=== PATIENT | female | born 1960 | race Caucasian/White ===

== ENCOUNTER 2019-12-18 20:49 | Emergency (ER) | payer OTHER, SELFPAY ==
[2019-12-18 20:51] VITALS: BP 138/84; PULSE 89; RESP 16; TEMP 36.8; O2SAT 99
[2019-12-18 21:14] VITALS: BP 147/83; PULSE 90; RESP 18; O2SAT 95
--- NOTE | 2019-12-18 21:18 | ED.WOUNDLAC ---
HPI - Wound/Laceration General Chief Complaint: Wound/Laceration Stated Complaint: finger lac Time Seen by Provider: 12/18/19 21:16 History of Present Illness HPI narrative: Pt is a 59 y/o female who presents to the ED with c/o a wound to her hand that occurred a few hours ago after cutting ice with a steak knife. Pt notes that she does not have an sales service professional at home and she wanted some crushed ice. Pt denies taking any pain medications. Pt's Tetanus is UTD. Pt denies any numbness and tingling. Onset (ago): hour(s) Location: other (hand) Place: home Patient tetanus UTD: Yes Context: accidental Associated symptoms: none Related Data Allergies Allergy/AdvReac Type Severity Reaction Status Date / Time No Known Allergies Allergy Unverified 11/28/17 03:29 Review of Systems Review of Systems: Narrative: SKIN: Reports wound to right hand. NEUROLOGIC: Denies numbness and tingling. All systems reviewed & are unremarkable except as noted in HPI and below PMFSH Past Medical History Medical History (Updated 12/18/19 @ 21:32 by Jordana De La Cruz) Anxiety Arthritis Depression Ganglion cyst of dorsum of right wrist Hyperlipidemia Hypothyroid Kidney stone Right clavicle fracture Toe fracture, right Surgical History Surgical History (Updated 12/18/19 @ 21:33 by Jordana De La Cruz) H/O arthroscopy of left knee H/O dilation and curettage History of hysterectomy Hx of section x2 Social History Social History (Updated 12/18/19 @ 21:32 by Jordana De La Cruz) Smoking packs per day: 1 Smoking cigarettes per day: 20.0 Smoking status: Current every day smoker Tobacco type: cigarettes Exam Narrative: Exam Narrative: GENERAL: Well-appearing, well-nourished, and in no acute distress. HEAD: Normocephalic, atraumatic. EYES: PERRLA and EOMI. ENT: Nares clear, no rhinorrhea or epistaxis. Mucous membranes moist. NECK: Supple. CHEST: No respiratory distress. HEART: Radial pulse 2+. EXTREMITIES: Normal range of motion. No edema. No deformity to right hand. SKIN: Warm, dry, no rash. 0.5 cm puncture wound to right interphalangeal crease between 1st and 2nd digit. Intact sensation, median, ulnar, radial nerve distribution. [employer] strength 5 out of 5. NEURO: No focal deficits. Alert and oriented X3. Course Vital Signs Vital signs: Vital Signs Temperature 36.8 C 12/18/19 20:51 Pulse Rate 89 12/18/19 20:51 Respiratory Rate 16 12/18/19 20:51 Blood Pressure 138/84 12/18/19 20:51 Pulse Oximetry 99 12/18/19 20:51 Temperature 36.8 C 12/18/19 20:51 Pulse Rate 90 12/18/19 21:14 Respiratory Rate 18 12/18/19 21:14 Blood Pressure 147/83 H 12/18/19 21:14 Pulse Oximetry 95 12/18/19 21:14 Procedures Laceration Laceration 1: Date: 12/18/19 Time: 21:27 Site: hand Size (cm): 0.5 Description: linear Depth: involves muscle layer Local Anesthetic: lidocaine 1% Amount of anesthesia used (mL): 3 Pre-repair: wound explored, irrigated and irrigated extensively ====== Skin Level ====== Skin layer closed with: prolene Size (cm): 5-0 Number of sutures: 1 Technique: simple, interrupted ====== Subcutaneous Layer ====== ====== Muscle Layer ====== ====== Tendon Layer ====== MDM - Wound/Laceration MDM Narrative Medical decision making narrative: Patient with puncture wound to interphalangeal space of right hand. There is some tendon visible. No evidence of tendon laceration. Patient neurovascularly intact, normal range of motion, no deformity, no evidence of foreign body. No tenderness over the phalynxes or metacarpals, thus I doubt osseous injury given no deformity or concurrent pain. No contamination of the wound. Wound was irrigated, repaired with 1 suture. Patient will not require antibiotics for this simple laceration. She was discharged home in stable condition. Differential Diagnosis Diff
[2019-12-18 21:55] VITALS: BP 141/82; PULSE 88; RESP 15; TEMP 36.8; O2SAT 97
== END 2019-12-18 21:50 | disposition home or self-care (01) ==
PROVIDERS: Emergency Provider Emergency Medicine; PCP Family Medicine
DX: S61.411A Laceration without foreign body of right hand, initial encounter (principal); F41.9 Anxiety disorder, unspecified; F32.9 Major depressive disorder, single episode, unspecified; E78.5 Hyperlipidemia, unspecified; E03.9 Hypothyroidism, unspecified; Z87.442 Personal history of urinary calculi; M19.90 Unspecified osteoarthritis, unspecified site; W26.0XXA Contact with knife, initial encounter
CPT/HCPCS: 12001; 99282

== ENCOUNTER 2020-06-25 14:21 | Outpatient (CLI) | payer OTHER, SELFPAY ==
--- NOTE | ~2020-06-25 | XR_ITS ---
EXAMINATION: XR hand LT min 3V DATE: 06/25/2020 14:46 INDICATION: Pain in the left fingers TECHNIQUE: Posteroanterior, oblique and lateral views of the left hand were obtained. COMPARISON: None. FINDINGS: Alignment is normal. No fracture. Mild to moderate osteoarthritis at the distal interphalangeal joint s and third metacarpophalangeal joint and mild osteoarthritis at the triscaphe, first carpometacarpal and remaining metacarpophalangeal and interphalangeal joints. Soft tissues are unremarkable. IMPRESSION: 1. Mild to moderate polyarticular osteoarthritis with distal interphalangeal joint predominance. Reviewed, dictated and finalized at location A. IMPRESSION: 1. Mild to moderate polyarticular osteoarthritis with distal interphalangeal velma int predominance.
== END 2020-06-25 14:22 ==
PROVIDERS: PCP Physician Assistant; Visit Provider Physician Assistant
DX: M19.042 Primary osteoarthritis, left hand (principal)
CPT/HCPCS: 73130

== ENCOUNTER 2022-03-10 10:37 | Outpatient (CLI) | payer BC, SELFPAY ==
--- NOTE | ~2022-03-10 | US_ITS ---
EXAMINATION: US abdomen complete DATE: 03/10/2022 12:21 INDICATION: Generalized abdominal pain TECHNIQUE: Multiple grayscale and Doppler ultrasound images of the abdomen were obtained. COMPARISON: None available FINDINGS: The head and body of the pancreas are normal. The pancreatic tail is obscured by bowel gas. The liver demonstrates increased echogenicity, heterogenous echotexture, and decreased through trans mission. There appears to be mild nodularity of the liver surface. Normal hepatopetal flow in the yudelka n portal vein. The gallbladder is normal with no abnormal wall thickening, pericholecystic fluid or s tones. The normal common bile duct measures 4 mm. There was no sonographic Gutierrez sign. The visualize d portions of the aorta and inferior vena cava are normal. The right kidney measures 10.8 525.0 cm. The left kidney measures 11.0 0.0 x 5.3 cm. The kidneys demo nstrate normal parenchymal echogenicity. There is no hydronephrosis. Multiple echogenic foci scattere d throughout the spleen spleen are consistent with old granulomatous disease. The spleen measures 9 c m. IMPRESSION: 1. No sonographic correlate for the patient's symptoms. 2. Diffuse hepatic steatosis with possible mild cirrhosis. Reviewed, dictated and finalized at location A.
== END 2022-03-10 10:38 | disposition home or self-care (01) ==
PROVIDERS: PCP Physician Assistant; Visit Provider Physician Assistant
DX: R10.84 Generalized abdominal pain (principal); K76.0 Fatty (change of) liver, not elsewhere classified
CPT/HCPCS: 76700

== ENCOUNTER 2022-03-16 08:08 | Outpatient (CLI) | payer BC, SELFPAY ==
--- NOTE | ~2022-03-16 | CT_ITS ---
EXAMINATION: CT abdomen pelvis wo con DATE: 03/16/2022 08:26 INDICATION: Abdominal pain and bloating for weeks. Cirrhosis of the liver. Hepatic steatosis. TECHNIQUE: Computed tomography (CT) of the abdomen and pelvis was performed without intravenous contr ast. Automated exposure control and iterative reconstruction technique were employed. Exam dose: 941 .08 mGy-cm total exam DLP. COMPARISON: 03/10/2022 abdominal ultrasound examination FINDINGS: There are occasional focal areas of peripheral pulmonary infiltrate, atelectasis or scarrin g at the lung bases. Heart size is within normal limits. No pericardial or pleural effusion. Small sliding hiatal hernia. There is hepatic steatosis. There are calcified splenic granulomas. No splenomegaly. No hepatic, sple caridad, pancreatic, adrenal or renal space-occupying mass lesion is detected. There is a pinpoint nonobstructing right renal calculus and 3 x 5 mm nonobstructing right renal calcu bud. There is prominent right renal pelvis and normal caliber of the right ureter, suggesting right ureter opelvic distal portion. No ureteral calculus or hydroureteronephrosis is noted otherwise. There is atherosclerotic calcification of the abdominal aorta but no abdominal aortic aneurysm. No in traperitoneal or retroperitoneal or pelvic mass lesion or adenopathy or ascites. The urinary bladder is evacuated. Status post hysterectomy. No bowel obstruction or intraperitoneal free air is detected. No suspicious osteolytic or osteoblastic lesions. There is prominent eburnation and spurring as well as vacuum phenomenon is an disc space narrowing in particular at T8-9. IMPRESSION: Hepatic steatosis Minimal nonobstructive bilateral nephrolithiasis Right probable ureteropelvic disproportion Status post hysterectomy Reviewed, dictated and finalized at Location [facility]. Reviewed, dictated and finalized at location B.
== END 2022-03-16 08:09 | disposition home or self-care (01) ==
PROVIDERS: PCP Physician Assistant; Visit Provider Family Medicine
DX: K76.0 Fatty (change of) liver, not elsewhere classified (principal); K74.60 Unspecified cirrhosis of liver; R10.84 Generalized abdominal pain
CPT/HCPCS: 74176

== ENCOUNTER 2022-04-26 17:10 | Emergency (ER) | payer BC, SELFPAY ==
--- NOTE | ~2022-04-26 | XR_ITS ---
EXAM: XR knee LT min 4V DATE: 04/26/2022 17:34 HISTORY: pain, swelling . COMPARISON: None available. FINDINGS: Slightly decreased mineralization. No fracture or dislocation. No lytic or blastic lesion. Tricompartmental osteoarthritis, severe in the medial compartment. No erosion or periosteal change. Moderate volume joint effusion. Soft tissues within normal limits. IMPRESSION: No acute osseous finding in the left knee. Reviewed, dictated and finalized at location K.
[2022-04-26 17:12] VITALS: BP 130/104; PULSE 95; RESP 16; TEMP 36.8; O2SAT 98
--- NOTE | 2022-04-26 17:27 | ED.LOWEXIN ---
HPI - Extremity Injury (Lower) General Chief Complaint: Extremity Injury, Lower Stated Complaint: left knee pain Time Seen by Provider: 04/26/22 17:21 Source: patient Mode of arrival: ambulatory Limitations: no limitations History of Present Illness HPI Narrative: Patient is a 61 y/o female who presents to the ED with c/o L knee pain. Patient reports having chronic issues with her left knee. She does have history of arthritis and was told she needs to have a knee replacement. She has had previous arthroscopic left knee surgery in the past. Patient reports 3 days ago she began to have increasing pain and swelling in her left knee. Denied any injury at that time. Yesterday, she bent down to pick out hand her dog and strained her left knee. She has had persistent pain and swelling since then, to the point she is hardly able to bear weight on her left leg. She has been utilizing Aleve, ice, elevation, knee brace at home. Denies any numbness, tingling. No abrasions/wounds. No erythema or warmth to left knee. Patient has seen Dr. Gan and Dr. Mccloud in the past. Related Data Allergies Allergy/AdvReac Type Severity Reaction Status Date / Time No Known Allergies Allergy Unverified 04/26/22 17:16 Review of Systems Review of Systems: CONSTITUTIONAL: Denies fever, chills. SKIN: Reports swelling to left knee. Denies redness, warmth to left knee. MUSCULOSKELETAL: Reports left knee pain. Denies back pain, myalgia. NEUROLOGIC: Denies tingling, numbness, or weakness. All systems reviewed & are unremarkable except as noted in HPI and below PMFSH Past Medical History Medical History Anxiety Arthritis Depression Ganglion cyst of dorsum of right wrist Hyperlipidemia Hypothyroid Kidney stone Right clavicle fracture Toe fracture, right Surgical History Surgical History H/O arthroscopy of left knee H/O dilation and curettage History of hysterectomy Hx of section x2 Social History Social History Smoking packs per day: 1 Smoking cigarettes per day: 20.0 Smoking status: Current every day smoker Tobacco type: cigarettes Exam Narrative: GENERAL: Well appearing, well-nourished, non-toxic, in no acute distress. HEAD: Normocephalic, atraumatic. NECK: Supple. No adenopathy, no masses. RESPIRATORY: Airway patent, respirations nonlabored. CARDIOVASCULAR: Regular rate and rhythm without murmurs, rubs, or gallops. Peripheral pulses 2+ and equal bilaterally. MUSCULOSKELETAL: Moves all extremities. Strength intact. Limited flexion range of motion of left knee due to pain. Diffuse joint swelling of left knee. No pain with ballottement of patella. Tenderness to palpation in medial and lateral joint spaces of left knee, worse medially. SKIN: Warm, dry, normal color. No rashes. No warmth or erythema to left knee joint. NEURO: A&O X3. Speech clear. Cranial nerves II-XII grossly intact. Steady gait. No ataxic movements. PSYCHIATRIC: Appropriate mood and affect. Normal interaction. Course Vital Signs Vital signs: Vital Signs Temperature 98.3 F 04/26/22 17:12 Pulse Rate 95 04/26/22 17:12 Respiratory Rate 16 04/26/22 17:12 Blood Pressure 130/104 H 04/26/22 17:12 Pulse Oximetry 98 04/26/22 17:12 Oxygen Delivery Room Air 04/26/22 17:12 Temperature 98.3 F 04/26/22 17:12 Pulse Rate 95 04/26/22 17:12 Respiratory Rate 16 04/26/22 17:12 Blood Pressure 130/104 H 04/26/22 17:12 Pulse Oximetry 98 04/26/22 17:12 Oxygen Delivery Room Air 04/26/22 17:12 MDM - Extremity Injury (Lower) MDM Narrative Medical decision making narrative: Patient presented to ED with report of left knee pain. Long history of arthritis and pain. TTP to medial and lateral joint spaces on exam. Patient's injury is consistent with musculoskeletal etiolog
[2022-04-26] MEDS: KETOROLAC (*BKC) 60 MG/2 ML VIAL IM (18:12)
== END 2022-04-26 19:03 | disposition home or self-care (01) ==
LOC: ANHED 17:40
PROVIDERS: Emergency Provider Emergency Medicine; PCP Physician Assistant
DX: M23.92 Unspecified internal derangement of left knee (principal); F17.210 Nicotine dependence, cigarettes, uncomplicated; E78.5 Hyperlipidemia, unspecified; E03.9 Hypothyroidism, unspecified; Z87.442 Personal history of urinary calculi; M25.462 Effusion, left knee; M17.12 Unilateral primary osteoarthritis, left knee
CPT/HCPCS: 73564; 96372; 99283; J1885

== ENCOUNTER 2023-05-28 16:23 | Emergency (ER) | payer BC, SELFPAY ==
--- NOTE | ~2023-05-28 | XR_ITS ---
EXAM: XR knee RT min 4V DATE: 05/28/2023 17:06 HISTORY: fall TODAY, FELT POP , PAIN ENTIRE KNEE . COMPARISON: None available. FINDINGS: Normal mineralization. No fracture or dislocation. No lytic or blastic lesion. Mild tricom partmental osteoarthritis. Small joint effusion. No erosion or periosteal change. Soft tissues within normal limits. IMPRESSION: No acute osseous finding in the right knee. Reviewed, dictated and finalized at location K.
--- NOTE | ~2023-05-28 | CT_ITS ---
CT OF right knee EXAMINATION: CT knee RT wo con DATE: 05/28/2023 18:15 INDICATION: Right knee pain TECHNIQUE: Computed tomography (CT) of the right knee was performed without intravenous contrast. Aut omated exposure control and iterative reconstruction technique were employed. The dose-length product was 515.94 mGy-cm. COMPARISON: X-ray right knee 05/28/2023 FINDINGS: Moderate medial joint space narrowing. Moderate tricompartmental osteophytosis. Slightly decreased german ne mineral density. No fracture. No dislocation. Although not optimized for their detection, the amy r stabilizing ligaments of the knee appear to be grossly intact. Small volume joint fluid. IMPRESSION: No acute osseous finding in the right knee. Reviewed, dictated and finalized at location K.
[2023-05-28 16:26] VITALS: BP 140/81; PULSE 76; RESP 20; TEMP 36.4; O2SAT 100
--- NOTE | 2023-05-28 17:02 | ED.LOWEXIN ---
HPI - Extremity Injury (Lower) General Chief Complaint: Extremity Injury, Lower Stated Complaint: R Knee pain Time Seen by Provider: 05/28/23 16:38 History of Present Illness HPI Narrative: This is a 62-year-old female with past history of hypothyroidism, who presents emergency department complaining of right knee pain. The patient states over the past week, she has noted progressive right knee pain with walking. Today she noted 7/10 pain, described as sharp and pulling, at the posterior aspect of the knee and occasionally radiating to the right foreleg. She denies fevers, chills, spreading redness or loss of sensation in the leg. The patient states today, while walking the leg gave out causing her to fall. She states she landed on her bottom. She denies head injury or directly striking the knee. Related Data Allergies Allergy/AdvReac Type Severity Reaction Status Date / Time No Known Allergies Allergy Verified 05/28/23 17:09 Review of Systems Review of Systems: CONSTITUTIONAL: Denies fever, chills, or sweats. EYES: Denies visual changes, redness, or discharge. CARDIOVASCULAR: Denies chest pain, palpitations, or edema. RESPIRATORY: Denies cough or dyspnea. GASTROINTESTINAL: Denies abdominal pain, nausea, vomiting, or diarrhea. GENITOURINARY: Denies dysuria or hematuria. SKIN: Denies rash or itching. MUSCULOSKELETAL: Right knee pain denies back pain, or myalgia. NEUROLOGIC: Denies headache, numbness, dizziness, or weakness. PSYCHIATRIC: Denies anxiety or depression. [facility] Past Medical History Medical History Anxiety Arthritis Depression Ganglion cyst of dorsum of right wrist Hyperlipidemia Hypothyroid Kidney stone Right clavicle fracture Toe fracture, right Surgical History Surgical History H/O arthroscopy of left knee H/O dilation and curettage History of hysterectomy Hx of section x2 Social History Social History Smoking packs per day: 1 Smoking cigarettes per day: 20.0 Smoking status: Current every day smoker Tobacco type: cigarettes Substance use: never Living arrangements: with family Gender identity (if verbalized by the patient): Female Exam Narrative: GENERAL: Well-developed, well-nourished, and in no acute distress. HEAD: Normocephalic, atraumatic. EYES: PERRLA and EOMI. CHEST: Clear to auscultation. No respiratory distress. No wheezes rales or rhonchi HEART: Regular rate and rhythm. No murmur heard. Normal peripheral pulses. ABDOMEN: Soft, nontender, nondistended, normal active bowel sounds. BACK: No midline spine tenderness to palpation, no step-off or crepitus EXTREMITIES: Tender with extension of the knee at approximately 170 degrees. There is mildly increased laxity with varus stress. There is a small amount of joint effusion noted compared to the right. There is no noted erythema or induration of the knee. Anterior and posterior drawer signs negative. Range of motion of all other joints normal. No edema. SKIN: Warm, dry, no rash. NEURO: No focal deficits. Alert and oriented x3. PSYCH: Normal mood and affect. Course Course Emergency Course: 17:38 - X-ray of the knee negative for fracture dislocation. Patient's exam demonstrates mild lateral collateral ligament laxity, I suspect she may have a collateral ligament strain. Will Isaias wrap and ambulate. If the patient is able to bear weight will discharge with pain medications, recommendations for RICE therapy and primary care follow-up. If the patient is unable to bear weight. Will obtain CT. The patient is agreeable with this plan. 18:33 - CT of the knee negative for fracture or dislocation. There are some arthritic changes noted. I discussed these findings with the patient with recommendation for Tylenol and ibuprofen as needed for pain,
[2023-05-28] MEDS: ACETAMINOPHEN 500 MG TABLET 1000 MG PO (17:22)
== END 2023-05-28 18:45 | disposition home or self-care (01) ==
PROVIDERS: Emergency Provider Preventive Medicine Aerospace Medicine; PCP Physician Assistant
DX: S83.421A Sprain of lateral collateral ligament of right knee, initial encounter (principal); E78.5 Hyperlipidemia, unspecified; E03.9 Hypothyroidism, unspecified; M19.90 Unspecified osteoarthritis, unspecified site; Z87.442 Personal history of urinary calculi; Z90.710 Acquired absence of both cervix and uterus; F17.210 Nicotine dependence, cigarettes, uncomplicated; X58.XXXA Exposure to other specified factors, initial encounter
CPT/HCPCS: 73564; 73700; 99284; A9270

== ENCOUNTER 2025-10-28 23:00 | Emergency (ER) | payer MEDICARE, SELFPAY ==
--- NOTE | ~2025-10-28 | XR_ITS ---
Examination: XR chest 1V portable Clinical History: SHORTNESS OF BREATH Comparison: None Technique: Portable AP Findings: Low lung volumes crowd bronchovascular markings. Heart size normal. Diffusely increased interstitial markings. Large left effusion and basilar opacity. No acute bony abnormality. Benign sclerotic focus right humeral head. IMPRESSION: 1. Large left pleural effusion with basilar atelectasis and/or airspace disease. 2. Interstitial pulmonary edema and/or pneumonitis. Reviewed, dictated and finalized at location R. [employer] IMPRESSION: 1. Large left pleural effusion with basilar atelectasis and/or airspace diseas e. 2. Interstitial pulmonary edema and/or pneumonitis.
--- NOTE | ~2025-10-28 | CT_ITS ---
CTA CHEST CT ABDOMEN PELVIS CLINICAL HISTORY: sob, hypoxic, abd chest, r/o PE, mass, infiltrate, . COMPARISON: Chest x-ray hours prior CT abdomen and pelvis 03/16/2022 TECHNIQUE: Helical CT performed from thoracic inlet to symphysis pubis 100 mL Omnipaque 350 Coronal, sagittal reformats. Multiplanar MIPS CT images acquired with automatic exposure control for dose reduction DLP: 1325 mGy-cm FINDINGS: CHEST- Thoracic Aorta: No dissection. No aneurysm. Pulmonary arteries: Normal caliber. No PE. Lungs/Pleura: Large pleural effusions. Significant bilateral atelectasis and/or airspace disease. Interlobular septal thickening. Heart: Cardiomegaly. Small pericardial fluid Tracheobronchial tree: Occluded bibasilar dependent foci. Nodes: No enlarged nodes. Bones: No acute bony abnormality. Benign sclerotic focus proximal right humerus. Soft tissues: Unremarkable. ABDOMEN/PELVIS- Liver: Small hypodense focus segment 6 with central enhancement. Gallbladder: Unremarkable. Spleen: Multiple small parenchymal calcifications from prior granulomatous disease. Pancreas: Unremarkable. Adrenal glands: Mild diffuse thickening left side. Kidneys: Right kidney- No hydronephrosis. Chronic pelvocaliectasis. 5 mm stone. Left kidney- No hydronephrosis. Tiny stone. Distal esophagus/stomach: Small sliding hiatal hernia. Small bowel loops: Normal caliber and wall thickness. Colon: Normal caliber and wall thickness. Normal RLQ appendix. Nodes: No enlarged nodes. Peritoneum: No ascites. No free air. Urinary bladder: Unremarkable. Uterus: Removed. Adnexa: No masses. Small pelvic free fluid. Bones: No acute bony abnormality. Soft tissues: Unremarkable. Abdominal aorta: Unremarkable. Atherosclerotic disease. IVC: Unremarkable. Main portal vein, SMV: Patent. IMPRESSION: CHEST- 1. Large pleural effusions with interstitial pulmonary edema. 2. Significant bilateral atelectasis, aspiration, and/or airspace disease. 3. Severe cardiomegaly, with small pericardial fluid. 4. No PE or aortic dissection. ABDOMEN/PELVIS- 1. No acute abnormality, with findings as above. Reviewed, dictated and finalized [facility] signed by Garht Corbin M.D. on 10/29/2025 7:01 [employer]
[2025-10-28 23:00] VITALS: BP 137/100; PULSE 74; PULSE 80; RESP 20; TEMP 36.6; O2SAT 96
[2025-10-28 23:32] VITALS: PULSE 63; RESP 16; O2SAT 99
--- NOTE | 2025-10-28 23:36 | ECG_ITS ---
Test Date: 2025-10-28 23:56:25 Measurements Intervals Solomon Rate: 82 P: 26 VA: 139 QRS: -35 QRSD: 100 T: 79 QT: 385 QTc: 452 Interpretive Statements SINUS RHYTHM LEFT AXIS DEVIATION POOR R WAVE PROGRESSION NONSPECIFIC T-WAVE ABNORMALITY- HIGH LATERAL LEADS BASELINE ARTIFACT- I, III, AVR, AVL, AVF BORDERLINE ECG No previous ECG available for comparison Electronically Signed On 10-29-2025 07:00:20 [employer]EE[employer] OPERATOR by Philipp Lai D.O.
--- NOTE | 2025-10-28 23:39 | ED_ITS ---
HPI - SOB/Dyspnea General Chief Complaint: Shortness of Breath/Dyspnea <Serjio Penny MD - Last Filed: 10/29/25 05:59> Stated Complaint: SOB <Serjio Penny MD - Last Filed: 10/29/25 05:59> Time Seen by Provider: 10/28/25 23:15 <Serjio Penny MD - Last Filed: 10/29/25 05:59> History of Present Illness HPI Narrative: 65-year-old white female with a long history of heavy smoking, hypercholesterolemia, hypothyroidism, presents with increasing shortness of breath beginning tonight. She has been having some intermittent increased coughing over the past few days. Tonight her breathing got worse and just would not get better. She does not use any inhalers or nebulizers, and reports she has never ever been prescribed them or use them. He has never been evaluated for sleep apnea. She denies over the past few days any fever, chills, sinus drainage, sore throat, denies chest pain, palpitations, near-syncope or syncope. Denies abdominal pain, nausea or vomiting, diarrhea or constipation, denies dysuria urgency or frequency. She has had increasing pedal edema over the past few weeks and she has had increasing dyspnea on exertion <Serjio Penny MD - Last Filed: 10/29/25 05:59> Related Data Home Medications: Home Medications ?Medication ?Instructions ?Recorded ?Confirmed ?Last Taken ?Type atorvastatin 40 mg tablet 40 mg PO DAILY 06/11/2311/08 Unknown History losartan 100 mg tablet 100 mg PO DAILY 06/11/23 Unknown History oxybutynin chloride 5 mg tablet 5 mg PO DAILY 06/11/23 11/26/23 Unknown History hydrocodone 5 mg-acetaminophen 325 1 tablet PO Q8H PRN 06/24/23 11/26/23 Unknown History mg tablet <Serjio Penny MD - Last Filed: 10/29/25 05:59> Allergies/Adverse Reactions: Allergies Allergy/AdvReac Type Severity Reaction Status Date / Time No Known Allergies Allergy Verified 10/29/25 00:37 <Serjio Penny MD - Last Filed: 10/29/25 05:59> Review of Systems 2 Review of Systems: ROS is negative except as in HPI <Serjio Penny MD - Last Filed: 10/29/25 05:59> [facility] Past Medical History Medical History: Medical History Hypertension Dyshidrotic eczema Overactive bladder Degenerative joint disease Anxiety Depression Hypothyroid Arthritis Hyperlipidemia <Serjio Penny MD - Last Filed: 10/29/25 05:59> Surgical History Surgical History: Surgical History H/O arthroscopy of left knee H/O dilation and curettage History of hysterectomy NORA-BSO 1989 History of surgical removal of ganglion cyst Hx of section 1983, 1985 <Serjio Penny MD - Last Filed: 10/29/25 05:59> Family History Family History: Family History Father Hypertension Heart disease mitral valve replacement with complications Mother Diabetes mellitus Spinal stenosis Grandparent Heart disease Leukemia <Serjio Penny MD - Last Filed: 10/29/25 05:59> Social History Social History: Social History Smoking packs per day: 1 Smoking cigarettes per day: 20.0 Smoking status: Current every day smoker Tobacco type: cigarettes Alcohol intake: current Substance use: never Lack of Transportation: No Lack of Food: Never True Current Housing: I Have Housing Concerned About Future Housing: No Difficulty Paying Gas/Electric Bills: No Difficulty Paying for Meds: No Currently Unemployed: No Education: High School Diploma/GED Difficulty w/ Childcare or Family Care: No Living arrangements: with family Occupation/Education: retired Gender identity (if verbalized by the patient): Female <Serjio Penny MD - Last Filed: 10/29/25 05:59> Exam 2 Narrative: pleasant, obese, very hoarse voice, very heavy odor of tobacco, obese neck, appears dyspneic but not in acute respiratory distress, Skin shows changes consistent with longstanding heavy smoking There is some nicotine staining <Serjio Penny MD - Last Filed: 10/29/25 05:59> Const: General: cooperative, healthy appearing, comfortable, no acute distress, well developed, alert, awake and Physically active <Serjio Penny MD - Last Filed: 10/29/25 05:59> Orientation/consciousness: patient oriented x3 <Serjio Penny MD - Last Filed: 10/29/25 05:59> HENMT: Head: normal to inspection, normocephalic and atraumatic <Serjio Penny MD - Last Filed: 10/29/25 05:59> Ears: hearing grossly normal bilaterally and external ears normal <Serjio Penny MD - Last Filed: 10/29/25 05:59> Face/Nose/Sinus: Normal external nose present, Normal nares present, Normal nasal mucous membranes and turbinates present and normal facial exam <Serjio Penny MD - Last Filed: 10/29/25 05:59> Face and sinus: normal facial exam <Serjio Penny MD - Last Filed: 10/29/25 05:59> Mouth: Yes Normal oral and palatal mucosa present, Yes lip normal, Yes tongue normal, Yes oropharynx normal and Yes moist mucous membranes <Serjio Penny MD - Last Filed: 10/29/25 05:59> Teeth and gingiva: dentition normal <Serjio Penny MD - Last Filed: 10/29/25 05:59> Throat: posterior oropharynx normal and tonsils normal ( erythematous) < Serjio Penny MD - Last Filed: 10/29/25 05:59> Eyes: General: appearance normal, both eyes and all related structures < Serjio Penny MD - Last Filed: 10/29/25 05:59> Alignment and Position: alignment normal and position normal <Serjio Penny MD - Last Filed: 10/29/25 05:59> Periorbital: periorbital findings normal <Serjio Penny MD - Last Filed: 10/29/25 05:59> Eyelids: eyelids normal <Serjio Penny MD - Last Filed: 10/29/25 05:59> Conjunctivae: conjunctivae normal <Serjio Penny MD - Last Filed: 10/29/25 05:59> Sclera: sclerae normal <Serjio Penny MD - Last Filed: 10/29/25 05:59> Cornea: corneas normal <Serjio Penny MD - Last Filed: 10/29/25 05:59> Pupils: Equal, round and reactive pupils present <Serjio Penny MD - Last Filed: 10/29/25 05:59> EOM: EOMs intact bilaterally <Serjio Penny MD - Last Filed: 10/29/25 05:59> Neck: Neck: normal visual inspection, full ROM and no lymphadenopathy < Serjio Penny MD - Last Filed: 10/29/25 05:59> Chest: Chest palpation & inspection: normal inspection of the chest < Serjio Penny MD - Last Filed: 10/29/25 05:59> Resp: Effort & Inspection: normal respiratory effort, able to speak in complete sentences, no audible wheezes, no respiratory distress and uses accessory muscles <Serjio Penny MD - Last Filed: 10/29/25 05:59> Auscultation: not clear to auscultation bilaterally, rhonchi and wheezes < Serjio Penny MD - Last Filed: 10/29/25 05:59> Other: Lung sounds are for all or somewhat muffled distant but lungs sound fairly tight <Serjio Penny MD - Last Filed: 10/29/25 05:59> Cardio: Jugular venous distension: no JVD <Serjio Penny MD - Last Filed: 10/29/25 05:59> Rate: regular rate <Serjio Penny MD - Last Filed: 10/29/25 05:59> Rhythm: regular rhythm <Serjio Penny MD - Last Filed: 10/29/25 05:59> Heart sounds: Murmur heart sound present <Serjio Penny MD - Last Filed: 10/29/25 05:59> Other: 2/6 systolic ejection murmur <Serjio Penny MD - Last Filed: 10/29/25 05:59> GI: Inspection: normal to inspection <Serjio Penny MD - Last Filed: 10/29/25 05:59> GI Palp: No abdominal tenderness, No Tenderness to palpation present (GI), No Guarding due to palpation present (GI), No No hepatosplenomegaly present, No Palpable mass present and No Rebound tenderness present <Serjio Penny MD - Last Filed: 10/29/25 05:59> Skin: General skin exam: normal color, no rashes or lesions noted, elasticity normal and turgor normal <Serjio Penny MD - Last Filed: 10/29/25 05:59> Neuro: General: patient oriented x3, gait normal, tone normal and moves all extremities <Serjio Penny MD - Last Filed: 10/29/25 05:59> Cranial nerves: Yes CN's II-XII intact bilaterally, Yes Equal, round and reactive pupils present and Yes Bilaterally intact EOM present <Serjio Penny MD - Last Filed: 10/29/25 05:59> Speech: normal speech <Serjio Penny MD - Last Filed: 10/29/25 05:59> Motor exam (neuro): 5/5 motor strength present throughout and Normal motor muscle tone present throughout <Serjio Penny MD - Last Filed: 10/29/25 05:59> Sensory Exam: normal sensation <Serjio Penny MD - Last Filed: 10/29/25 05:59> Extrem: General: normal to inspection, normal exam except as noted and pedal edema present (2+ pitting edema of the lower extremities) <Serjio Penny MD - Last Filed: 10/29/25 05:59> Psych: Appearance: grossly normal and well kempt <Serjio Penny MD - Last Filed: 10/29/25 05:59> Mental Status: mental status grossly normal <Serjio Penny MD - Last Filed: 10/29/25 05:59> Speech and movement: Normal speech and movement present <Serjio Penny MD - Last Filed: 10/29/25 05:59> Affect: normal affect <Serjio Penny MD - Last Filed: 10/29/25 05:59> Attitude: cooperative <Serjio Penny MD - Last Filed: 10/29/25 05:59> Thought process: Normal thought process present <Serjio Penny MD - Last Filed: 10/29/25 05:59> Course Course Emergency Course: Differential diagnosis includes but is not limited to URI, bronchitis, pneumonia, COPD, PE, ACS, CHF, renal failure, fluid overload Her oval appearance is consistent with COPD secondary to longstanding tobacco use, it is somewhat difficult to understand how she could has such extensive changes in her skin consistent with longstanding tobacco use, obvious has extremely heavy tobacco use now with nicotine staining, voice is very coarse and hoarse, it would be unusual for her to have a dark blue. In not have had issues with bronchospasm in the past. We will go ahead and get CBC, CMP, troponin, BNP back CBCs color COVID, influenza, chest x-ray, EKG, given hour long albuterol treatment, Atrovent, 125 of Solu-Medrol, and reassess While patient did improve with the albuterol, Atrovent she gets markedly hypoxic and bradycardic when she falls asleep. She has severe obstructive sleep apnea with long pauses, and at times drops her heart rate into the upper 30s. Her pulse ox will drift down into the 70s, when we wake her up pedal climbed back up into the low 90s on 3 L. her chest x-ray is markedly abnormal, with very poor inspiratory volume, patient is noted to be significantly osteoporotic and kyphotic. Likely has a component of restrictive lung disease as well. We will cover her with Rocephin and azithromycin for COPD exacerbation, CMP shows the move 139, potassium is low at 3.1, chloride is 104, bicarb is 28, BUN 15, creatinine is 1.1 giving her an estimated GFR of 49. Her proBNP is 7430, liver functions are normal, UA is fairly unremarkable, influenza is negative, Magnesium is 2.4 so unlikely that magnesium infusion would help her breathing 5:05 AM EKG demonstrates sinus rhythm, occasional PVCs, left atrial enlargement, left axis deviation, and she has very poor R-wave, may well have had previous anterior PR. Patient gets markedly hypoxic when sleeping, and at times dropped down as low as 70% pulse ox. Will initiate BiPAP, additional albuterol treatments, will also give her 60 Lasix as it is not clear if a component of what were seen on her chest x-ray is failure. 5:30 a.m. CTA PE protocol of the chest is pending, CT abdomen and pelvis with IV contrast is pending, blood gas is pending, BiPAP is being initiated along with additional albuterol treatments, Atrovent. She has been covered with antibiotic Anticipate transfer to higher level of care, [facility] does not have a bed [facility] does not have a bed patient understands that bed availability will likely determine destination however her preference is [facility] or [facility]. ABG results: 7.23, pCO2 of 65.8, PO2 of 49.9 CT angio shows Medical decision making complexity and risk was high involving evaluation of numerous labs, images, Radiology report, monitor, telemetry, EKG, blood gases, numerous medications for COPD, numerous nebulizer treatments, steroids, antibiotics for broad-spectrum coverage, utilization of BiPAP, arranging transfer to a higher level of care, differential included life-threatening conditions, treatment included complex decision making. Critical care time 75 minutes <Serjio Penny MD - Last Filed: 10/29/25 05:59> Differential diagnosis includes but is not limited to URI, bronchitis, pneumonia, COPD, PE, ACS, CHF, renal failure, fluid overload Her oval appearance is consistent with COPD secondary to longstanding tobacco use, it is somewhat difficult to understand how she could has such extensive changes in her skin consistent with longstanding tobacco use, obvious has extremely heavy tobacco use now with nicotine staining, voice is very coarse and hoarse, it would be unusual for her to have a dark blue. In not have had issues with bronchospasm in the past. We will go ahead and get CBC, CMP, troponin, BNP back CBCs color COVID, influenza, chest x-ray, EKG, given hour long albuterol treatment, Atrovent, 125 of Solu-Medrol, and reassess While patient did improve with the albuterol, Atrovent she gets markedly hypoxic and bradycardic when she falls asleep. She has severe obstructive sleep apnea with long pauses, and at times drops her heart rate into the upper 30s. Her pulse ox will drift down into the 70s, when we wake her up pedal climbed back up into the low 90s on 3 L. her chest x-ray is markedly abnormal, with very poor inspiratory volume, patient is noted to be significantly osteoporotic and kyphotic. Likely has a component of restrictive lung disease as well. We will cover her with Rocephin and azithromycin for COPD exacerbation, CMP shows the move 139, potassium is low at 3.1, chloride is 104, bicarb is 28, BUN 15, creatinine is 1.1 giving her an estimated GFR of 49. Her proBNP is 7430, liver functions are normal, UA is fairly unremarkable, influenza is negative, Magnesium is 2.4 so unlikely that magnesium infusion would help her breathing 5:05 AM EKG demonstrates sinus rhythm, occasional PVCs, left atrial enlargement, left axis deviation, and she has very poor R-wave, may well have had previous anterior PR. Patient gets markedly hypoxic when sleeping, and at times dropped down as low as 70% pulse ox. Will initiate BiPAP, additional albuterol treatments, will also give her 60 Lasix as it is not clear if a component of what were seen on her chest x-ray is failure. 5:30 a.m. CTA PE protocol of the chest is pending, CT abdomen and pelvis with IV contrast is pending, blood gas is pending, BiPAP is being initiated along with additional albuterol treatments, Atrovent. She has been covered with antibiotic Anticipate transfer to higher level of care, [facility] does not have a bed [facility] does not have a bed patient understands that bed availability will likely determine destination however her preference is [facility] or [facility]. ABG results: 7.23, pCO2 of 65.8, PO2 of 49.9 CT angio shows Medical decision making complexity and risk was high involving evaluation of numerous labs, images, Radiology report, monitor, telemetry, EKG, blood gases, numerous medications for COPD, numerous nebulizer treatments, steroids, antibiotics for broad-spectrum coverage, utilization of BiPAP, arranging transfer to a higher level of care, differential included life-threatening conditions, treatment included complex decision making. Critical care time 75 minutes Took over care from previous ER doctor patient with some hypoxia with some large pleural effusion as noted on CTA with no pulmonary embolism patient had ABGs performed which initially showed a blood gas of 7.23 with a pCO2 of 65 bicarb of 26 patient initially on BiPAP and current ABG 7.1 8 with pCO2 of 84 bicarb of 30. White count is 5.1 troponins are negative D-dimer is negative COVID influenza are negative patient currently on AVAPS. Current vitals blood pressure 118/72 heart rate of 90 respiratory rate of 18 O2 sats at 94%. Spoke to Dr. [facility] that accepted the patient for transfer. <Blayne Cuevas MD - Last Filed: 10/29/25 13:09> Vital Signs Vital signs: Vital Signs Temperature 36.6 C 10/28/25 23:00 Pulse Rate 74 10/28/25 23:00 Respiratory Rate 20 10/28/25 23:00 Blood Pressure 137/100 H 10/28/25 23:00 Pulse Oximetry 96 10/28/25 23:00 Oxygen Delivery Room Air 10/28/25 23:00 Temperature 36.5 C 10/29/25 10:11 Pulse Rate 82 10/29/25 11:16 Respiratory Rate 16 10/29/25 11:20 Blood Pressure 143/82 H 10/29/25 11:15 Pulse Oximetry 94 10/29/25 11:16 Oxygen Delivery BiPAP 10/29/25 11:20 Oxygen Flow Rate 4 10/29/25 04:52 <Serjio Penny MD - Last Filed: 10/29/25 05:59> Vital Signs Temperature 36.6 C 10/28/25 23:00 Pulse Rate 74 10/28/25 23:00 Respiratory Rate 20 10/28/25 23:00 Blood Pressure 137/100 H 10/28/25 23:00 Pulse Oximetry 96 10/28/25 23:00 Oxygen Delivery Room Air 10/28/25 23:00 Temperature 36.5 C 10/29/25 10:11 Pulse Rate 82 10/29/25 11:16 Respiratory Rate 16 10/29/25 11:20 Blood Pressure 143/82 H 10/29/25 11:15 Pulse Oximetry 94 10/29/25 11:16 Oxygen Delivery BiPAP 10/29/25 11:20 Oxygen Flow Rate 4 10/29/25 04:52 <Blayne Cuevas MD - Last Filed: 10/29/25 13:09> MDM Differential Diagnosis Differential Diagnosis: Respiratory hypoxia/COPD/pleural effusion <Blayne Cuevas MD - Last Filed: 10/29/25 13:09> Lab Data Result diagrams: 10/29/25 00:14 10/29/25 06:10 <Serjio Penny MD - Last Filed: 10/29/25 05:59> Labs: Lab Results 10/29/25 10/29/25 10/29/25 Range/Units 00:01 00:14 01:59 WBC 5.1 (4.8-10.8) K/mm3 RBC 4.05 L (4.20-5.40) M/mm3 Hgb 13.5 (11.7-13.8) g/dL Hct 41.3 (35.0-42.0) % MCV 102.0 (78.0-102.0) fL MCH 33.3 H (27.0-31.0) pg MCHC 32.7 (32-36) g/dL RDW 14.8 H (11.6-14.4) % Plt Count 248 (150-420) K/mm3 MPV 9.1 L (9.2-11.8) fl Immature Gran % (Auto) 0.2 H (0.0-0.0) % Neut % (Auto) 60.2 (50.0-70.0) % Lymph % (Auto) 26.6 (18.0-42.0) % [place] % (Auto) 8.8 (2.0-11.0) % Eos % (Auto) 2.2 (1.0-6.0) % Baso % (Auto) 2.0 H (0.0-1.0) % Lymph # (Auto) 1.36 (1.10-4.50) K/mm3 [place] # (Auto) 0.45 (0.10-0.90) K/mm3 Eos # (Auto) 0.11 (0.02-0.50) K/mm3 Baso # (Auto) 0.10 (0.00-0.10) K/mm3 Abs Immat Gran (auto) 0.01 H (0.00-0.00) K/mm3 Absolute Neuts (auto) 3.08 (1.70-7.20) K/mm3 Absolute Nucleated RBC 0.00 (0.00-0.00) K/mm3 Nucleated RBC % 0.0 (0-0.0) % PT 10.7 (9.50-12.1) Seconds INR 1.0 APTT 28.2 (23.9-30.70) Sec D-Dimer 0.43 (0.19-0.50) mg/L Expiratory Pressure cmH2O Inspiratory Pressure cmH2O Sodium 139 (137-145) mmol/L Potassium 3.1 L (3.4-5.0) mmol/L Chloride 104 (98-107) mmol/L Carbon Dioxide 28 (22-30) mmol/L Anion Gap 7 (4-12) mmol/L BUN 15 (7-17) mg/dL Creatinine 1.11 H (0.7-1.0) mg/dL Estim Creat Clear Calc Not Reportable Estimated GFR 49 L (59 - ) Glucose 108 (65-110) mg/dL Calculated Osmolality 289 (285-295) mOsm/kg Calcium 9.5 (8.4-10.2) mg/dL Magnesium 2.4 H (1.6-2.3) mg/dL Total Bilirubin 0.7 (0.2-1.3) mg/dL AST 31 (14-36) U/L ALT 17 (6-35) U/L Alkaline Phosphatase 62 (38-126) U/L Troponin I 0.013 (0.000-0.034) ng/mL NT-Pro-B Natriuret Pep 7430 H (19.9-100) pg/mL Total Protein 7.3 (6.3-8.2) g/dL Albumin 4.3 (3.5-5.1) g/dL Urine Color Yellow (Yellow) Urine Appearance Clear (Clear) Urine pH 6.5 (5.0-8.0) Ur Specific [place] 1.020 (1.010-1.020) Urine Protein 1+ H (Negative) Urine Glucose (UA) Negative (Negative) Urine Ketones Trace H (Negative) Ur Blood (Man) Negative (Negative) Urine Nitrate Negative (Negative) Urine Bilirubin 1+ H (Negative) Urine Urobilinogen 2.0 H (0.2-1.0) mg/dL Leukocyte Esterase Rfl Negative (Negative) SONNY/UL Ur Squamous Epith Cells Few (Few) /hpf Amorphous Sediment Moderate H (None) Urine Mucus Moderate H /lpf Influenza A (RT-PCR) Negative (Negative) Influenza B (RT-PCR) Negative (Negative) RSV (RT-PCR) (Negative) SARS-CoV-2 RNA (RT-PCR) (Negative) 10/29/25 10/29/25 10/29/25 Range/Units 06:10 09:05 10:17 WBC (4.8-10.8) K/mm3 RBC (4.20-5.40) M/mm3 Hgb (11.7-13.8) g/dL Hct (35.0-42.0) % MCV (78.0-102.0) fL MCH (27.0-31.0) pg MCHC (32-36) g/dL RDW (11.6-14.4) % Plt Count (150-420) K/mm3 MPV (9.2-11.8) fl Immature Gran % (Auto) (0.0-0.0) % Neut % (Auto) (50.0-70.0) % Lymph % (Auto) (18.0-42.0) % [place] % (Auto) (2.0-11.0) % Eos % (Auto) (1.0-6.0) % Baso % (Auto) (0.0-1.0) % Lymph # (Auto) (1.10-4.50) K/mm3 [place] # (Auto) (0.10-0.90) K/mm3 Eos # (Auto) (0.02-0.50) K/mm3 Baso # (Auto) (0.00-0.10) K/mm3 Abs Immat Gran (auto) (0.00-0.00) K/mm3 Absolute Neuts (auto) (1.70-7.20) K/mm3 Absolute Nucleated RBC (0.00-0.00) K/mm3 Nucleated RBC % (0-0.0) % PT (9.50-12.1) Seconds INR APTT (23.9-30.70) Sec D-Dimer (0.19-0.50) mg/L Expiratory Pressure 6 cmH2O Inspiratory Pressure 16 cmH2O Sodium (137-145) mmol/L Potassium 3.2 L (3.4-5.0) mmol/L Chloride (98-107) mmol/L Carbon Dioxide (22-30) mmol/L Anion Gap (4-12) mmol/L BUN (7-17) mg/dL Creatinine (0.7-1.0) mg/dL Estim Creat Clear Calc Estimated GFR (59 - ) Glucose (65-110) mg/dL Calculated Osmolality (285-295) mOsm/kg Calcium (8.4-10.2) mg/dL Magnesium (1.6-2.3) mg/dL Total Bilirubin (0.2-1.3) mg/dL AST (14-36) U/L ALT (6-35) U/L Alkaline Phosphatase (38-126) U/L Troponin I (0.000-0.034) ng/mL NT-Pro-B Natriuret Pep (19.9-100) pg/mL Total Protein (6.3-8.2) g/dL Albumin (3.5-5.1) g/dL Urine Color (Yellow) Urine Appearance (Clear) Urine pH (5.0-8.0) Ur Specific [place] (1.010-1.020) Urine Protein (Negative) Urine Glucose (UA) (Negative) Urine Ketones (Negative) Ur Blood (Man) (Negative) Urine Nitrate (Negative) Urine Bilirubin (Negative) Urine Urobilinogen (0.2-1.0) mg/dL Leukocyte Esterase Rfl (Negative) SONNY/UL Ur Squamous Epith Cells (Few) /hpf Amorphous Sediment (None) Urine Mucus /lpf Influenza A (RT-PCR) (Negative) Influenza B (RT-PCR) (Negative) RSV (RT-PCR) Negative (Negative) SARS-CoV-2 RNA (RT-PCR) Negative (Negative) 10/29/25 Range/Units 10:21 WBC (4.8-10.8) K/mm3 RBC (4.20-5.40) M/mm3 Hgb (11.7-13.8) g/dL Hct (35.0-42.0) % MCV (78.0-102.0) fL MCH (27.0-31.0) pg MCHC (32-36) g/dL RDW (11.6-14.4) % Plt Count (150-420) K/mm3 MPV (9.2-11.8) fl Immature Gran % (Auto) (0.0-0.0) % Neut % (Auto) (50.0-70.0) % Lymph % (Auto) (18.0-42.0) % [place] % (Auto) (2.0-11.0) % Eos % (Auto) (1.0-6.0) % Baso % (Auto) (0.0-1.0) % Lymph # (Auto) (1.10-4.50) K/mm3 [place] # (Auto) (0.10-0.90) K/mm3 Eos # (Auto) (0.02-0.50) K/mm3 Baso # (Auto) (0.00-0.10) K/mm3 Abs Immat Gran (auto) (0.00-0.00) K/mm3 Absolute Neuts (auto) (1.70-7.20) K/mm3 Absolute Nucleated RBC (0.00-0.00) K/mm3 Nucleated RBC % (0-0.0) % PT (9.50-12.1) Seconds INR APTT (23.9-30.70) Sec D-Dimer (0.19-0.50) mg/L Expiratory Pressure 5 cmH2O Inspiratory Pressure 20 cmH2O Sodium (137-145) mmol/L Potassium (3.4-5.0) mmol/L Chloride (98-107) mmol/L Carbon Dioxide (22-30) mmol/L Anion Gap (4-12) mmol/L BUN (7-17) mg/dL Creatinine (0.7-1.0) mg/dL Estim Creat Clear Calc Estimated GFR (59 - ) Glucose (65-110) mg/dL Calculated Osmolality (285-295) mOsm/kg Calcium (8.4-10.2) mg/dL Magnesium (1.6-2.3) mg/dL Total Bilirubin (0.2-1.3) mg/dL AST (14-36) U/L ALT (6-35) U/L Alkaline Phosphatase (38-126) U/L Troponin I (0.000-0.034) ng/mL NT-Pro-B Natriuret Pep (19.9-100) pg/mL Total Protein (6.3-8.2) g/dL Albumin (3.5-5.1) g/dL Urine Color (Yellow) Urine Appearance (Clear) Urine pH (5.0-8.0) Ur Specific [place] (1.010-1.020) Urine Protein (Negative) Urine Glucose (UA) (Negative) Urine Ketones (Negative) Ur Blood (Man) (Negative) Urine Nitrate (Negative) Urine Bilirubin (Negative) Urine Urobilinogen (0.2-1.0) mg/dL Leukocyte Esterase Rfl (Negative) SONNY/UL Ur Squamous Epith Cells (Few) /hpf Amorphous Sediment (None) Urine Mucus /lpf Influenza A (RT-PCR) (Negative) Influenza B (RT-PCR) (Negative) RSV (RT-PCR) (Negative) SARS-CoV-2 RNA (RT-PCR) (Negative) <Serjio Penny MD - Last Filed: 10/29/25 05:59> Lab Results 10/29/25 10/29/25 10/29/25 Range/Units 00:01 00:14 01:59 WBC 5.1 (4.8-10.8) K/mm3 RBC 4.05 L (4.20-5.40) M/mm3 Hgb 13.5 (11.7-13.8) g/dL Hct 41.3 (35.0-42.0) % MCV 102.0 (78.0-102.0) fL MCH 33.3 H (27.0-31.0) pg MCHC 32.7 (32-36) g/dL RDW 14.8 H (11.6-14.4) % Plt Count 248 (150-420) K/mm3 MPV 9.1 L (9.2-11.8) fl Immature Gran % (Auto) 0.2 H (0.0-0.0) % Neut % (Auto) 60.2 (50.0-70.0) % Lymph % (Auto) 26.6 (18.0-42.0) % [place] % (Auto) 8.8 (2.0-11.0) % Eos % (Auto) 2.2 (1.0-6.0) % Baso % (Auto) 2.0 H (0.0-1.0) % Lymph # (Auto) 1.36 (1.10-4.50) K/mm3 [place] # (Auto) 0.45 (0.10-0.90) K/mm3 Eos # (Auto) 0.11 (0.02-0.50) K/mm3 Baso # (Auto) 0.10 (0.00-0.10) K/mm3 Abs Immat Gran (auto) 0.01 H (0.00-0.00) K/mm3 Absolute Neuts (auto) 3.08 (1.70-7.20) K/mm3 Absolute Nucleated RBC 0.00 (0.00-0.00) K/mm3 Nucleated RBC % 0.0 (0-0.0) % PT 10.7 (9.50-12.1) Seconds INR 1.0 APTT 28.2 (23.9-30.70) Sec D-Dimer 0.43 (0.19-0.50) mg/L Expiratory Pressure cmH2O Inspiratory Pressure cmH2O Sodium 139 (137-145) mmol/L Potassium 3.1 L (3.4-5.0) mmol/L Chloride 104 (98-107) mmol/L Carbon Dioxide 28 (22-30) mmol/L Anion Gap 7 (4-12) mmol/L BUN 15 (7-17) mg/dL Creatinine 1.11 H (0.7-1.0) mg/dL Estim Creat Clear Calc Not Reportable Estimated GFR 49 L (59 - ) Glucose 108 (65-110) mg/dL Calculated Osmolality 289 (285-295) mOsm/kg Calcium 9.5 (8.4-10.2) mg/dL Magnesium 2.4 H (1.6-2.3) mg/dL Total Bilirubin 0.7 (0.2-1.3) mg/dL AST 31 (14-36) U/L ALT 17 (6-35) U/L Alkaline Phosphatase 62 (38-126) U/L Troponin I 0.013 (0.000-0.034) ng/mL NT-Pro-B Natriuret Pep 7430 H (19.9-100) pg/mL Total Protein 7.3 (6.3-8.2) g/dL Albumin 4.3 (3.5-5.1) g/dL Urine Color Yellow (Yellow) Urine Appearance Clear (Clear) Urine pH 6.5 (5.0-8.0) Ur Specific [place] 1.020 (1.010-1.020) Urine Protein 1+ H (Negative) Urine Glucose (UA) Negative (Negative) Urine Ketones Trace H (Negative) Ur Blood (Man) Negative (Negative) Urine Nitrate Negative (Negative) Urine Bilirubin 1+ H (Negative) Urine Urobilinogen 2.0 H (0.2-1.0) mg/dL Leukocyte Esterase Rfl Negative (Negative) SONNY/UL Ur Squamous Epith Cells Few (Few) /hpf Amorphous Sediment Moderate H (None) Urine Mucus Moderate H /lpf Influenza A (RT-PCR) Negative (Negative) Influenza B (RT-PCR) Negative (Negative) RSV (RT-PCR) (Negative) SARS-CoV-2 RNA (RT-PCR) (Negative) 10/29/25 10/29/25 10/29/25 Range/Units 06:10 09:05 10:17 WBC (4.8-10.8) K/mm3 RBC (4.20-5.40) M/mm3 Hgb (11.7-13.8) g/dL Hct (35.0-42.0) % MCV (78.0-102.0) fL MCH (27.0-31.0) pg MCHC (32-36) g/dL RDW (11.6-14.4) % Plt Count (150-420) K/mm3 MPV (9.2-11.8) fl Immature Gran % (Auto) (0.0-0.0) % Neut % (Auto) (50.0-70.0) % Lymph % (Auto) (18.0-42.0) % [place] % (Auto) (2.0-11.0) % Eos % (Auto) (1.0-6.0) % Baso % (Auto) (0.0-1.0) % Lymph # (Auto) (1.10-4.50) K/mm3 [place] # (Auto) (0.10-0.90) K/mm3 Eos # (Auto) (0.02-0.50) K/mm3 Baso # (Auto) (0.00-0.10) K/mm3 Abs Immat Gran (auto) (0.00-0.00) K/mm3 Absolute Neuts (auto) (1.70-7.20) K/mm3 Absolute Nucleated RBC (0.00-0.00) K/mm3 Nucleated RBC % (0-0.0) % PT (9.50-12.1) Seconds INR APTT (23.9-30.70) Sec D-Dimer (0.19-0.50) mg/L Expiratory Pressure 6 cmH2O Inspiratory Pressure 16 cmH2O Sodium (137-145) mmol/L Potassium 3.2 L (3.4-5.0) mmol/L Chloride (98-107) mmol/L Carbon Dioxide (22-30) mmol/L Anion Gap (4-12) mmol/L BUN (7-17) mg/dL Creatinine (0.7-1.0) mg/dL Estim Creat Clear Calc Estimated GFR (59 - ) Glucose (65-110) mg/dL Calculated Osmolality (285-295) mOsm/kg Calcium (8.4-10.2) mg/dL Magnesium (1.6-2.3) mg/dL Total Bilirubin (0.2-1.3) mg/dL AST (14-36) U/L ALT (6-35) U/L Alkaline Phosphatase (38-126) U/L Troponin I (0.000-0.034) ng/mL NT-Pro-B Natriuret Pep (19.9-100) pg/mL Total Protein (6.3-8.2) g/dL Albumin (3.5-5.1) g/dL Urine Color (Yellow) Urine Appearance (Clear) Urine pH (5.0-8.0) Ur Specific [place] (1.010-1.020) Urine Protein (Negative) Urine Glucose (UA) (Negative) Urine Ketones (Negative) Ur Blood (Man) (Negative) Urine Nitrate (Negative) Urine Bilirubin (Negative) Urine Urobilinogen (0.2-1.0) mg/dL Leukocyte Esterase Rfl (Negative) SONNY/UL Ur Squamous Epith Cells (Few) /hpf Amorphous Sediment (None) Urine Mucus /lpf Influenza A (RT-PCR) (Negative) Influenza B (RT-PCR) (Negative) RSV (RT-PCR) Negative (Negative) SARS-CoV-2 RNA (RT-PCR) Negative (Negative) 10/29/25 Range/Units 10:21 WBC (4.8-10.8) K/mm3 RBC (4.20-5.40) M/mm3 Hgb (11.7-13.8) g/dL Hct (35.0-42.0) % MCV (78.0-102.0) fL MCH (27.0-31.0) pg MCHC (32-36) g/dL RDW (11.6-14.4) % Plt Count (150-420) K/mm3 MPV (9.2-11.8) fl Immature Gran % (Auto) (0.0-0.0) % Neut % (Auto) (50.0-70.0) % Lymph % (Auto) (18.0-42.0) % [place] % (Auto) (2.0-11.0) % Eos % (Auto) (1.0-6.0) % Baso % (Auto) (0.0-1.0) % Lymph # (Auto) (1.10-4.50) K/mm3 [place] # (Auto) (0.10-0.90) K/mm3 Eos # (Auto) (0.02-0.50) K/mm3 Baso # (Auto) (0.00-0.10) K/mm3 Abs Immat Gran (auto) (0.00-0.00) K/mm3 Absolute Neuts (auto) (1.70-7.20) K/mm3 Absolute Nucleated RBC (0.00-0.00) K/mm3 Nucleated RBC % (0-0.0) % PT (9.50-12.1) Seconds INR APTT (23.9-30.70) Sec D-Dimer (0.19-0.50) mg/L Expiratory Pressure 5 cmH2O Inspiratory Pressure 20 cmH2O Sodium (137-145) mmol/L Potassium (3.4-5.0) mmol/L Chloride (98-107) mmol/L Carbon Dioxide (22-30) mmol/L Anion Gap (4-12) mmol/L BUN (7-17) mg/dL Creatinine (0.7-1.0) mg/dL Estim Creat Clear Calc Estimated GFR (59 - ) Glucose (65-110) mg/dL Calculated Osmolality (285-295) mOsm/kg Calcium (8.4-10.2) mg/dL Magnesium (1.6-2.3) mg/dL Total Bilirubin (0.2-1.3) mg/dL AST (14-36) U/L ALT (6-35) U/L Alkaline Phosphatase (38-126) U/L Troponin I (0.000-0.034) ng/mL NT-Pro-B Natriuret Pep (19.9-100) pg/mL Total Protein (6.3-8.2) g/dL Albumin (3.5-5.1) g/dL Urine Color (Yellow) Urine Appearance (Clear) Urine pH (5.0-8.0) Ur Specific [place] (1.010-1.020) Urine Protein (Negative) Urine Glucose (UA) (Negative) Urine Ketones (Negative) Ur Blood (Man) (Negative) Urine Nitrate (Negative) Urine Bilirubin (Negative) Urine Urobilinogen (0.2-1.0) mg/dL Leukocyte Esterase Rfl (Negative) SONNY/UL Ur Squamous Epith Cells (Few) /hpf Amorphous Sediment (None) Urine Mucus /lpf Influenza A (RT-PCR) (Negative) Influenza B (RT-PCR) (Negative) RSV (RT-PCR) (Negative) SARS-CoV-2 RNA (RT-PCR) (Negative) <Blayne Cuevas MD - Last Filed: 10/29/25 13:09> ABG Data ABG results: 10/29/25 10/29/25 10/29/25 05:14 09:05 10:21 Puncture Site Right radial Left radial Right radial ABG pH 7.23 L 7.14 L 7.18 L ABG pCO2 65.8 H 93.1 H* 84.4 H* ABG pO2 49.9 L 85.5 H 74.8 L ABG HCO3 26.8 30.6 H 30.5 H ABG O2 Saturation 81.9 L 94.5 L 93.0 L ABG Base Excess -2.4 L -1.6 L -0.7 L Oxyhemoglobin 76.8 L 89.8 L 88.4 L O2 Delivery Device Nasal cannula Bipap Bipap O2 Liters/Min 4.0 5.0 Not Reportable <Serjio Penny MD - Last Filed: 10/29/25 05:59> 10/29/25 10/29/25 10/29/25 05:14 09:05 10:21 Puncture Site Right radial Left radial Right radial ABG pH 7.23 L 7.14 L 7.18 L ABG pCO2 65.8 H 93.1 H* 84.4 H* ABG pO2 49.9 L 85.5 H 74.8 L ABG HCO3 26.8 30.6 H 30.5 H ABG O2 Saturation 81.9 L 94.5 L 93.0 L ABG Base Excess -2.4 L -1.6 L -0.7 L Oxyhemoglobin 76.8 L 89.8 L 88.4 L O2 Delivery Device Nasal cannula Bipap Bipap O2 Liters/Min 4.0 5.0 Not Reportable <Blayne Cuevas MD - Last Filed: 10/29/25 13:09> Imaging Data Radiologist's impression: ITS Impressions Chest/Abdomen/Pelvis CTA 10/29/25 06:49 IMPRESSION: CHEST- 1. Large pleural effusions with interstitial pulmonary edema. 2. Significant bilateral atelectasis, aspiration, and/or airspace disease. 3. Severe cardiomegaly, with small pericardial fluid. 4. No PE or aortic dissection. ABDOMEN/PELVIS- 1. No acute abnormality, with findings as above. Chest X-Ray 10/29/25 10:44 IMPRESSION: 1. Large left pleural effusion with basilar atelectasis and/or airspace disease. 2. Interstitial pulmonary edema and/or pneumonitis. <Serjio Penny MD - Last Filed: 10/29/25 05:59> ITS Impressions Chest/Abdomen/Pelvis CTA 10/29/25 06:49 IMPRESSION: CHEST- 1. Large pleural effusions with interstitial pulmonary edema. 2. Significant bilateral atelectasis, aspiration, and/or airspace disease. 3. Severe cardiomegaly, with small pericardial fluid. 4. No PE or aortic dissection. ABDOMEN/PELVIS- 1. No acute abnormality, with findings as above. Chest X-Ray 10/29/25 10:44 IMPRESSION: 1. Large left pleural effusion with basilar atelectasis and/or airspace disease. 2. Interstitial pulmonary edema and/or pneumonitis. <Blayne Cuevas MD - Last Filed: 10/29/25 13:09> Discharge Plan Discharge Clinical Impression: COPD exacerbation, Pleural effusion Respiratory failure Qualifiers: Chronicity: acute Respiratory failure complication: hypoxia and hypercapnia Q ualified Code(s): J96.01 - Acute respiratory failure with hypoxia <Serjio Penny MD - Last Filed: 10/29/25 05:59> Patient Disposition: [facility] <Serjio Penny MD - Last Filed: 10/29/25 05:59> Condition: Guarded Prognosis <Serjio Penny MD - Last Filed: 10/29/25 05:59> Patient Language: Barb[place] <Serjio Penny MD - Last Filed: 10/29/25 05:59> Prescriptions: No Action prednisone 10 mg tablet 20 mg PO BID Qty: 35 0RF Rx Instructions: 2 tablets twice daily X7 days, then 1 tablet daily X7 days levothyroxine 125 mcg tablet 125 mcg PO DAILY Qty: 90 1RF levothyroxine 200 mcg tablet 200 mcg PO DAILY Qty: 90 1RF losartan 100 mg tablet 100 mg PO DAILY oxybutynin chloride 5 mg tablet 5 mg PO DAILY atorvastatin 40 mg tablet 40 mg PO DAILY hydrocodone-acetaminophen 5-325 mg tablet 1 tablet PO Q8H PRN escitalopram oxalate 20 mg tablet 20 mg PO DAILY Qty: 90 2RF <Serjio Penny MD - Last Filed: 10/29/25 05:59> Follow-up/Referrals: Janes Che MD [Primary Care Provider, [facility]] <Serjio Penny MD - Last Filed: 10/29/25 05:59> Time of Disposition: 13:08 <Serjio Penny MD - Last Filed: 10/29/25 05:59> 13:08 <Blayne Cuevas MD - Last Filed: 10/29/25 13:09>
[2025-10-28 23:45] VITALS: BP 157/90; PULSE 73; RESP 21; O2SAT 93
[2025-10-28 23:46] VITALS: PULSE 82; RESP 22; O2SAT 92
[2025-10-29] VITALS (78 sets, daily range): BP systolic 106–154; BP diastolic 72–101; PULSE 49–111; RESP 11–25; TEMP 36.5; O2SAT 72–100
[2025-10-29] MEDS: IPRATROPIUM BR 0.02% INH SOLN 0.5 MG/2.5 ML VIAL INHALATION (00:29)
[2025-10-29] MEDS: ALBUTEROL SULFATE NEB 2.5 MG/3 ML INH 10 MG INHALATION (00:29)
[2025-10-29] MEDS: IPRATROPIUM 0.5 MG/ALBUTEROL SULFATE 2.5 MG (BASE) AMPUL.NEB 3 ML INHALATION ×3 (00:29→01:20)
[2025-10-29 00:31] LABS: Hematocrit 41.3 % (35.0-42.0); Hemoglobin 13.5 g/dL (11.7-13.8); Immature Granulocyte Percent A 0.2 % (0.0-0.0); Lymphocytes Absolute Auto 1.36 K/mm3 (1.10-4.50); Mean Corpuscular HGB Conc 32.7 g/dL (32-36); Mean Corpuscular Hemoglobin 33.3 pg (27.0-31.0); Mean Corpuscular Volume 102.0 fL (78.0-102.0); Nucleated Red Blood Cells Absolute Auto 0.00 K/mm3 (0.00-0.00); Nucleated Red Blood Cells Perc 0.0 % (0-0.0); Platelet Count Result 248 K/mm3 (150-420); Red Blood Count 4.05 M/mm3 (4.20-5.40); White Blood Count 5.1 K/mm3 (4.8-10.8)
[2025-10-29 00:42] LABS: Alanine Aminotransferase 17 U/L (6-35); Albumin Level 4.3 g/dL (3.5-5.1); Alkaline Phosphatase 62 U/L (38-126); Anion Gap 7 mmol/L (4-12); Aspartate Amino Transferase 31 U/L (14-36); Bilirubin,Total 0.7 mg/dL (0.2-1.3); Blood Urea Nitrogen 15 mg/dL (7-17); Calcium 9.5 mg/dL (8.4-10.2); Carbon Dioxide 28 mmol/L (22-30); Chloride 104 mmol/L (98-107); Estimated Glomerular Filt Rate 49; Glucose 108 mg/dL (65-110); Magnesium 2.4 mg/dL (1.6-2.3); Osmolality Calculated 289 mOsm/kg (285-295); Potassium 3.1 mmol/L (3.4-5.0); Sodium 139 mmol/L (137-145); Total Protein 7.3 g/dL (6.3-8.2)
[2025-10-29 00:45] LABS: INR 1.0; Partial Thromboplastin Time 28.2 Sec (23.9-30.70); Prothrombin Time 10.7 Seconds (9.50-12.1)
[2025-10-29 00:47] LABS: Influenza A QL RT-PCR Negative (Negative); Influenza B QL RT-PCR Negative (Negative)
[2025-10-29 00:54] LABS: NT Pro B Type Natriuretic Pept 7430 pg/mL (19.9-100); Troponin I 0.013 ng/mL (0.000-0.034)
--- NOTE | 2025-10-29 01:52 | PC.NURSE ---
pt on commode trying to get a urine sample.
[2025-10-29 02:03] LABS: Add Urine Microscopic? YES; Appearance Urine Clear (Clear); Glucose Urine UA Negative (Negative); Leukocyte Esterase Ur Negative LEU/UL (Negative); Nitrate Urine Negative (Negative); Specific Grav Ur 1.020 (1.010-1.020)
[2025-10-29 05:15] LABS: HCO3 ABG 26.8 mmol/L (23-29); Oxygen Saturation ABG 81.9 % (95-97); PCO2 ABG 65.8 mmHg (35-45); PO2 ABG 49.9 mmHg (75-85)
[2025-10-29 05:19] LABS: Liters per Minute 4.0 LPM; Modified Allen's Test Pass; Site Drawn RIGHT RADIAL
[2025-10-29 06:25] LABS: Potassium 3.2 mmol/L (3.4-5.0)
[2025-10-29] MEDS: FUROSEMIDE INJ 40 MG/4 ML VIAL 60 MG IV PUSH (06:52)
--- NOTE | 2025-10-29 07:00 | PC.NURSE ---
RN goes to introduce herself to pt after nurse handoff. Pt only arousable to physical stimuli. MD Mason called to bedside. No new orders at this time.
--- NOTE | 2025-10-29 07:05 | PC.NURSE ---
Medication administered from previous shift. Unable to administer PO potassium due to pt's mental status. MD Mason made aware. No new orders at this time.
[2025-10-29] MEDS: cefTRIAXone 2 GM in SODIUM CHLORIDE 0.9% IV 100 ML 200 ML IVPB (07:30)
--- NOTE | 2025-10-29 08:00 | PC.NURSE ---
Pt continuing to have to be aroused by physical stimuli. MD Mason called back to bedside. No new orders at this time.
[2025-10-29] MEDS: AZITHROMYCIN IV 500 MG in SODIUM CHLORIDE 0.9% IV 250 ML IVPB (08:07)
[2025-10-29 09:08] LABS: HCO3 ABG 30.6 mmol/L (23-29); Oxygen Saturation ABG 94.5 % (95-97); PO2 ABG 85.5 mmHg (75-85)
[2025-10-29 09:12] LABS: Liters per Minute 5.0 LPM; Modified Allen's Test Pass; PCO2 ABG 93.1 mmHg (35-45); Site Drawn LEFT RADIAL
[2025-10-29 10:18] LABS: RSV RNA, RT-PCR Negative (Negative); SARS-CoV-2 RNA PCR Negative (Negative)
[2025-10-29 10:23] LABS: HCO3 ABG 30.5 mmol/L (23-29); Oxygen Saturation ABG 93.0 % (95-97); PO2 ABG 74.8 mmHg (75-85)
[2025-10-29 10:26] LABS: Modified Allen's Test Pass; PCO2 ABG 84.4 mmHg (35-45); Site Drawn RIGHT RADIAL
--- NOTE | 2025-11-01 15:11 | PC.NURSE ---
PRELIMINARY BLOOD CULTURE REPORT; NO GROWTH IN 24 HOURS.
--- NOTE | 2025-11-02 14:10 | PC.NURSE ---
Preliminary blood culture report; no growth in 48 hours.
--- NOTE | 2025-11-05 13:44 | PC.NURSE ---
blood final no growth
== END 2025-10-29 13:40 | disposition short-term general hospital (02) ==
PROVIDERS: Emergency Medicine; Emergency Provider Emergency Medicine; PCP Family Medicine
DX: J44.1 Chronic obstructive pulmonary disease with (acute) exacerbation (principal); J90 Pleural effusion, not elsewhere classified; J96.01 Acute respiratory failure with hypoxia; E03.9 Hypothyroidism, unspecified; I10 Essential (primary) hypertension; E78.5 Hyperlipidemia, unspecified; F17.210 Nicotine dependence, cigarettes, uncomplicated; Z20.822 Contact with and (suspected) exposure to COVID-19
CPT/HCPCS: 36415; 36600; 71045; 71275; 74177; 80053; 81001; 82805; 83735; 83880; 84132; 84484; 85025; 85380; 85610; 85730; 87040; 87502; 87634; 87635; 93005; 96365; 96367; 96375; 99285; J0456; J0696; J1938; J2919; J7050; Q9967